=== PATIENT | female | born 1965 | race Two or more races ===

== ENCOUNTER → 2024-07-08 | Outpatient (CLI) | payer MEDICAID, SELFPAY ==
--- NOTE | 2024-07-08 15:36 | XR_ITS ---
Examination: Shoulder,right, 3 views Technique: Shoulder AP internal rotation, AP external rotation, Y view shoulder, 3 views Exam date and time :July 08, 2024 1559 hours INDICATIONS: Right shoulder pain months. FINDINGS: Significant osteopenia Mild to moderate osteoarthritis glenohumeral joint and acromioclavicular joint No fracture or dislocation IMPRESSION: Mild to moderate osteoarthritis glenohumeral joint and acromioclavicular joint
--- NOTE | 2024-07-08 15:36 | XR_ITS ---
Examination: Bilateral hands, 6 views Technique: AP, Oblique, Lateral each hand total 6 views Date and time of exam: July 08, 2024 1559 hours INDICATIONS: Hand pain months Findings: Moderate osteopenia No fracture or dislocation involving either hand Mild to moderate osteoarthritis distal interphalangeal joints second through fifth digits and interphalangeal joint first digit No erosive arthritis involving either hand No opaque foreign bodies IMPRESSION: Osteoarthritis as above
--- NOTE | 2024-07-08 15:37 | XR_ITS ---
Examination: Left knee 2 views TECHNIQUE: AP lateral left knee 2 views Exam date and time: July 08, 2024 1601 hours INDICATIONS: Knee pain months. FINDINGS: Moderate to advanced tricompartment osteoarthritis, most severe medial joint space No fracture or dislocation Small knee effusion IMPRESSION: Moderate to advanced tricompartment osteoarthritis
== END | disposition home or self-care (01) ==
LOC: CDIM 15:27
PROVIDERS: PCP Nurse Practitioner Family; Referring Provider Physician Assistant; Visit Provider Physician Assistant
DX: M19.011 Primary osteoarthritis, right shoulder (principal); M19.042 Primary osteoarthritis, left hand; M19.041 Primary osteoarthritis, right hand; M17.12 Unilateral primary osteoarthritis, left knee
CPT/HCPCS: 73030; 73130; 73560

== ENCOUNTER → 2024-12-11 | Outpatient (CLI) | payer MEDICAID, SELFPAY ==
--- NOTE | 2024-12-11 08:00 | XR_ITS ---
Examination: Screening digital mammography, bilateral Computer aided detection 3-D breast Tomosynthesis, bilateral Date and time of exam: December 11, 2024 0743 hours Compared to mammograms dating to September 20, 2017 Indication: Screening Technique: Nonmagnified MLO, CC views of the breasts to been obtained, reconstructed from 3-D Tomosynthesis images. R2 computer aided detection program utilized for evaluation of suspicious masses and/or abnormal calcifications. 3-D Tomosynthesis images obtained. Findings: Scattered areas of fibroglandular density. Benign calcifications. No interval suspicious masses Impression: BI-RADS category II: Benign Findings. Recommend 1 year follow-up mammogram.
== END | disposition home or self-care (01) ==
LOC: CDIM 07:37
PROVIDERS: Referring Provider Nurse Practitioner Family; Visit Provider Nurse Practitioner Family
DX: Z12.31 Encounter for screening mammogram for malignant neoplasm of breast (principal); R92.323 Mammographic fibroglandular density, bilateral breasts; R92.1 Mammographic calcification found on diagnostic imaging of breast
CPT/HCPCS: 77063; 77067